=== PATIENT | female | born 1955 | race Caucasian/White ===

== ENCOUNTER 2016-11-11 17:03 | Emergency (ER) | payer OTHER ==
[~2016-11-11] VITALS: Ht 157.5 cm; Wt 113.4 kg
[~2016-11-11 17:03] MED LIST: ALBU8.5H4 IH; CETI10CA PO; HYDR1TAB4 PO; ZOLP10TA2 PO
--- NOTE | 2016-11-11 17:05 | NUR ---
HIGH BLOOD PRESSURE, PALPITATIONS, HEADACHE X 2 DAYS. AWAITING MD ORDER
[2016-11-11 18:39] LABS: BASOPHILS # (AUTO) 0.1 /CMM (0.0-0.2); BASOPHILS % (AUTO) 0.6 % (0.0-2.0); EOSINOPHILS # (AUTO) 0.2 /CMM (0.0-0.7); EOSINOPHILS % (AUTO) 2.5 % (0.0-6.0); HEMATOCRIT 39 % (33-45); HEMOGLOBIN 12.9 g/dL (11.5-14.8); LYMPHOCYTES # (AUTO) 1.8 /CMM (0.8-4.8); LYMPHOCYTES % (AUTO) 19.2 % (20.0-44.0); MEAN CORPUSCULAR HEMOGLOBIN 26 PG (26.0-33.0); MEAN CORPUSCULAR HGB CONC 33 g/dl (31.0-36.0); MEAN CORPUSCULAR VOLUME 80 fL (82-100); MONOCYTES # (AUTO) 0.4 /CMM (0.1-1.30); MONOCYTES % (AUTO) 4.7 % (2.0-12.0); NEUTROPHILS # (AUTO) 6.8 /CMM (1.8-8.9); PLATELET COUNT (AUTO) 384 /CMM (150-450); RDW COEFFICIENT OF VARIATION 12.6 (11.5-15.0); RED BLOOD CELL COUNT(AUTO) 4.89 MIL/uL (4.0-5.2); WHITE BLOOD COUNT (AUTO) 9.3 K/uL (4.3-11.0)
[2016-11-11 18:56] LABS: ALBUMIN 3.2 g/dL (3.4-5.0); BILIRUBIN,DIRECT 0.1 mg/dL (0.0-0.2); BILIRUBIN,TOTAL 0.6 mg/dL (0.2-1.0)
[2016-11-11 19:08] LABS: TOTAL PROTEIN, SERUM 7.3 g/dL (6.4-8.2)
--- NOTE | 2016-11-11 19:23 | NUR ---
RECEIVED PT FROM JOSE GÓMEZ FOR [facility].
[2016-11-11] MEDS ORDERED: diphenhydrAMINE HCL 50 MG CAPSULE ONE (19:37)
--- NOTE | 2016-11-11 19:40 | NUR ---
PT C/O ALISA EYE ITCHING AND REDNESS, PT MEDICATED ORDERED PER DR. FABIAN
[2016-11-11 19:58] VITALS: BP 136/78
--- NOTE | 2016-11-11 19:58 | NUR ---
Patient discharged to home in stable condition. Written and verbal after care instructions given. Patient verbalizes understanding of instruction. ambulatory with a steady gait. instructed pt not to drive. pt verbalize understanding.
[2016-11-11] MEDS ORDERED: diphenhydrAMINE HCL 25 MG CAPSULE PO ONE (20:00)
== END 2016-11-11 19:59 | disposition home or self-care (01) ==
LOC: ER 17:06
DX: I10 Essential (primary) hypertension (principal); F41.9 Anxiety disorder, unspecified; J45.909 Unspecified asthma, uncomplicated; Z88.6 Allergy status to analgesic agent; Z87.891 Personal history of nicotine dependence
CPT/HCPCS: 36415; 80076; 85025; 99284; A4606; Q0163; Z7610

== ENCOUNTER 2017-06-20 02:47 | Emergency (ER) | payer OTHER ==
[~2017-06-20] VITALS: Ht 157.5 cm; Wt 90.7 kg
--- NOTE | 2017-06-20 03:08 | NUR ---
PT AMBULATORY TO ER BED 13. PT BIBSELF FROM HOME C/O "WOKE UP FEELING ITCHY AND MY BOTTOM LIP IS SWOLLEN" X 3 HOURS. PT PLACED ON WINDOW DRESSER. VSS/RESP EVEN UNLABORED/NAD NOTED/SKIN WARM AND DRY/DENIES N-V-D/AOX4. AWAITING MD ROJAS.
--- NOTE | 2017-06-20 03:10 | NUR ---
AT BEDSIDE FOR EVAL.
[2017-06-20] MEDS ORDERED: diphenhydrAMINE HCL 50 MG/ML VIAL ONE (03:18)
[2017-06-20] MEDS ORDERED: methylPREDNISolone SOD SUCC 125 MG/2ML VIAL ONE (03:18)
[2017-06-20] MEDS ORDERED: FAMOTIDINE/PF INJ 20 MG/2 ML VIAL IV ONE (03:19)
--- NOTE | 2017-06-20 03:25 | NUR ---
20G IV X 1 ATTEMPT TO L FA USING ASEPTIC TECH, IV FLUSHES EASILY WITH NS. NO S/S INFILTRATION.
[2017-06-20] MEDS ORDERED: methylPREDNISolone SOD SUCC 125 MG/2ML VIAL IV ONE (03:30)
[2017-06-20] MEDS ORDERED: FAMOTIDINE/PF INJ 40 MG in IV D5W 250 ML IV ONE (03:30)
[2017-06-20] MEDS ORDERED: IV NS 0.9% 1,000 ML BAG IV ONE (03:30)
[2017-06-20] MEDS ORDERED: diphenhydrAMINE HCL 50 MG/ML VIAL IV ONE (03:30)
--- NOTE | 2017-06-20 05:21 | NUR ---
IV removed. Catheter intact and site benign. Pressure and 4x4 applied to site. No bleeding noted. Patient discharged to home in stable condition. Written and verbal after care instructions given. Patient verbalizes understanding of instruction. Patient is awake and alert to self, day, and place. Patient ambulatory with a steady gait.
[2017-06-20 05:22] VITALS: BP 174/91
== END 2017-06-20 05:23 | disposition home or self-care (01) ==
LOC: ER 02:51
DX: T78.40XA Allergy, unspecified, initial encounter (principal); J45.909 Unspecified asthma, uncomplicated; M79.7 Fibromyalgia; Z88.1 Allergy status to other antibiotic agents; Z88.6 Allergy status to analgesic agent; Z86.19 Personal history of other infectious and parasitic diseases
CPT/HCPCS: 96361; 96374; 96375; 99284; A4606; J1200; J2930; J3490; J7030; Z7610

== ENCOUNTER 2019-01-31 23:08 | Emergency (ER) | payer OTHER ==
[~2019-01-31] VITALS: Ht 157.5 cm; Wt 96.6 kg
--- NOTE | 2019-01-31 23:45 | NUR ---
BIB FAMILY FOR C/O BLE, CUE PAIN S/P FALL LAST WEDNESDAY.
[2019-01-31] MEDS ORDERED: ACETAMINOPHEN ES 500 MG TABLET ONE (23:56)
[2019-01-31] MEDS ORDERED: diphenhydrAMINE HCL 50 MG CAPSULE ONE (23:56)
[2019-02-01] MEDS ORDERED: ACETAMINOPHEN ES 500 MG TABLET PO ONE
[2019-02-01] MEDS ORDERED: diphenhydrAMINE HCL 50 MG CAPSULE PO ONE
--- NOTE | 2019-02-01 00:02 | NUR ---
RADIOLOGY AT BEDSIDE FOR XRAY
--- NOTE | 2019-02-01 01:33 | NUR ---
Patient discharged to home in stable condition. Written and verbal after care instructions given. Patient verbalizes understanding of instruction.
[2019-02-01 01:34] VITALS: BP 154/89
== END 2019-02-01 01:35 | disposition home or self-care (01) ==
LOC: ER 23:16
DX: M25.531 Pain in right wrist (principal); M25.532 Pain in left wrist; M25.561 Pain in right knee; M25.562 Pain in left knee; R21 Rash and other nonspecific skin eruption; J45.909 Unspecified asthma, uncomplicated; M79.7 Fibromyalgia; Z98.890 Other specified postprocedural states; Z88.1 Allergy status to other antibiotic agents; Z88.6 Allergy status to analgesic agent; Z79.899 Other long term (current) drug therapy
CPT/HCPCS: 73110 ×2; 73564 ×2; 99283; Q0163